=== PATIENT | male | born 1935 | race Caucasian/White ===

== ENCOUNTER → 2019-01-11 13:26 | Outpatient (REF) | payer SELFPAY ==
[2019-01-11 13:42] LABS: Calcium 8.2 mg/dL (8.4-10.2); Carbon Dioxide 19 mmol/L (22-32); Chloride 95 mmol/L (98-107); Estimated Glomerular Filt Rate 18.1 mL/min (>60); Glucose 95 mg/dL (80-110); HEMOLYSIS 16 (0-50); Sodium 129 mmol/L (137-145)
[2019-01-11 13:46] LABS: Blood Urea Nitrogen 109 mg/dL (9-20)
== END ==
LOC: LAB 13:26
PROVIDERS: Visit Provider Hospitalist
DX: R94.4 Abnormal results of kidney function studies (principal); E87.5 Hyperkalemia; I10 Essential (primary) hypertension
CPT/HCPCS: 80048

== ENCOUNTER → 2019-01-26 09:00 | Outpatient (REF) | payer MEDICARE, OTHER, SELFPAY ==
[2019-01-26 11:25] LABS: Add Manual Diff / Slide Review NO; Basophils Absolute Auto 0 /uL (0-100); Basophils Percent Auto 0.5 % (0-2); Eosinophils Absolute Auto 100 /uL (0-450); Eosinophils Percent Auto 1.2 % (2-4); Hematocrit 27.9 % (41-53); Hemoglobin 9.5 g/dL (13.5-17.5); Lymphocytes Absolute Auto 1300 /uL (1100-4500); Lymphocytes Percent Auto 15.8 % (25-40); Mean Corpuscular HGB Conc 33.9 % (30-36); Mean Corpuscular Hemoglobin 27.5 PG (26-34); Mean Corpuscular Volume 81.1 fL (80-100); Monocytes Absolute Auto 900 /uL (0-900); Monocytes Percent Auto 11.9 % (3-14); Neutrophils Absolute Auto 5600 /uL (1500-7000); Neutrophils Percent Auto 70.6 % (50-75); Platelet Count 246 X10^3/uL (150-400); Red Blood Cell Count 3.45 X10^6/uL (4.5-5.9); Red Cell Distribution Width 16.1 % (11.6-14.8)
[2019-01-26 11:46] LABS: BUN Creatinine Ratio 33.2 (6-22); Blood Urea Nitrogen 63 mg/dL (9-20); Calcium 9.1 mg/dL (8.4-10.2); Carbon Dioxide 32 mmol/L (22-32); Chloride 91 mmol/L (98-107); Estimated Glomerular Filt Rate 34.2 mL/min (>60); HEMOLYSIS < 15 (0-50); Potassium 3.5 mmol/L (3.4-5.1); Sodium 137 mmol/L (137-145)
[2019-01-26 12:05] LABS: Glucose 33 mg/dL (80-110)
== END ==
LOC: LAB 09:00
PROVIDERS: Visit Provider Nurse Practitioner Family
DX: N18.9 Chronic kidney disease, unspecified (principal); E78.5 Hyperlipidemia, unspecified
CPT/HCPCS: 36415; 80048; 85025

== ENCOUNTER 2019-01-26 13:45 | Emergency (ER) | payer MEDICARE, OTHER, SELFPAY ==
[2019-01-26] VITALS (21 sets, daily range): BP systolic 119–157; BP diastolic 47–111; PULSE 54–70; RESP 14–34; TEMP 32–36.8; O2SAT 60–100
--- NOTE | 2019-01-26 14:02 | DI.CT.S_ITS ---
PROCEDURE: CT HEAD/BRAIN WO CON INDICATIONS: altered mental status TECHNIQUE: Noncontrast 4.5 mm thick angled axial sections acquired from the foramen magnum to the vertex, with coronal and sagittal reformats. For radiation dose reduction, the following was used: automated exposure control, adjustment of mA and/or kV according to patient size. COMPARISON: None. FINDINGS: Image quality: There is motion artifact limiting evaluation. CSF spaces: Basal cisterns are patent. No extra-axial fluid collections. There is [id number] cerebral volume loss, with resultant ventricular and sulcal prominence. Brain: No definite intracranial hemorrhage, mass, or mass effect. Encephalomalacia is demonstrated within the left cerebellar hemisphere consistent with sequela of a prior infarct. Evaluation in the posterior fossa is markedly limited. There are subcortical, periventricular and deep white matter hypodensities consistent with [id number] chronic small vessel ischemic changes. A focal hypodensity in the right basal ganglia is suggestive of a prior lacunar infarct. There is intracranial internal carotid artery atherosclerosis. Skull and face: Calvarium and visualized facial bones appear intact, without suspicious lesions. Sinuses: Visualized sinuses and mastoids are clear. IMPRESSION: 1. Limited study due to motion artifact demonstrates no definite acute intracranial abnormality. 2. 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 3. Mild to moderate chronic white matter small vessel ischemic changes and cerebral volume loss. Dictated by: Binh Alvarado M.D. on 01/26/2019 at 15:16 Approved by: Binh Alvarado M.D. on 01/26/2019 at 15:19
--- NOTE | 2019-01-26 14:20 | ED.NEUROSD ---
HPI - Neuro Symptoms/Deficit <Jada Anderson DO - Last Filed: 01/27/19 07:05> General Chief Complaint: Neuro Symptoms/Deficit Stated Complaint: Mental Status Change Time Seen by Provider: 01/26/19 13:50 Source: patient and EMS Limitations: altered mental status History of Present Illness HPI Narrative: Patient is an 83-year-old male presenting with altered mental status. He is currently being treated for C diff, found to be altered found to have glucose of 31 by EMS. He was given dextrose glucose improved to 143 still overall not getting better with his mental status oxygen level also noted to be low in the 80s and standing course. She was recently at [facility] admitted for a few days had an echocardiogram. Patient has been admitted multiple times at [facility] recently and discharged on 01/24/2019. During his admission there he was noted to be hypothermic, hypokalemic also noted to have a rash on his rectal area thought to be fungal. Onset (ago): hour(s) Related Data Allergies Allergy/AdvReac Type Severity Reaction Status Date / Time No Known Drug Allergies Allergy Verified 01/26/19 15:51 Review of Systems <Jada Anderson DO - Last Filed: 01/27/19 07:05> Review of Systems ROS Unobtainable: Unobtainable due to medical condition [facility] <Jada Anderson DO - Last Filed: 01/27/19 07:05> Medical History (Updated 01/26/19 @ 18:41 by Jada Anderson DO) Acute kidney failure (Acute) Diabetes (Acute) Diastolic heart failure (Acute) C. difficile colitis (Acute) Hypertension (Acute) Exam <Jada Anderson DO - Last Filed: 01/27/19 07:05> Initial Vital Signs Initial Vital Signs: Vital Signs Pulse Rate 58 L 01/26/19 14:15 Respiratory Rate 29 H 01/26/19 14:15 Blood Pressure 155/55 H 01/26/19 14:15 Pulse Oximetry 60 L 01/26/19 14:15 Gen.: One-week confused elderly male responsive to pain and voice HEENT: Atraumatic EOMI Neck: Supple lung his neck nontender Lungs: Coarse bilaterally Cardiac: Regular rate no murmur Abdomen: Obese, soft, nontender Extremities: Moving all extremities peripheral pulses intact cold to touch Neurologic: Responsive to voice and pain can follow some commands Skin: Sacral area erythematous with sloughing of skin Dry not moist <Judah Liang DO - Last Filed: 01/27/19 02:15> Initial Vital Signs Initial Vital Signs: Vital Signs Pulse Rate 58 L 01/26/19 14:15 Respiratory Rate 29 H 01/26/19 14:15 Blood Pressure 155/55 H 01/26/19 14:15 Pulse Oximetry 60 L 01/26/19 14:15 Course <Jada Anderson DO - Last Filed: 01/27/19 07:05> Orders Ordered: ED Orders 01/26/19 22:45 Basic Metabolic Panel Stat Troponin I Stat Discontinued Medications Dextrose (D50w) 25 gm IV NOW ONE Stop: 01/26/19 14:01 Last Admin: 01/26/19 16:23 Dose: Not Given Furosemide (Lasix) 40 mg IV NOW ONE Stop: 01/26/19 14:14 Last Admin: 01/26/19 14:47 Dose: 40 mg Dextrose (D10w) 1,000 mls @ 100 mls/hr IV CONT ALEJA Last Infusion: 01/26/19 23:51 Dose: 0 mls/hr Admin: 01/26/19 14:47 Dose: 100 mls/hr Potassium Chloride 40 meq/ (Sodium Chloride) 520 mls @ 130 mls/hr IV NOW ONE Stop: 01/26/19 20:39 Last Infusion: 01/26/19 22:29 Dose: 0 mls/hr Admin: 01/26/19 17:13 Dose: 130 mls/hr Sodium Chloride (Normal Saline 0.9%) 1,000 mls @ 100 mls/hr IV BOLUS ONE Stop: 01/27/19 09:26 Last Infusion: 01/27/19 01:40 Dose: 100 mls/hr Admin: 01/26/19 23:31 Dose: 100 mls/hr Consultations Consultation #1: Dr. Osuna, hospitalist at [facility] Time: 18:33 Vital Signs - 8 hr 01/26/19 23:17 01/27/19 00:30 01/27/19 00:38 Temperature 98.4 F Pulse Rate 66 Respiratory Rate 28 H Blood Pressure 154/55 H 151/44 H Blood Pressure [Left Arm] 151/44 H Pulse Oximetry 95 01/27/19 01:00 01/27/19 01:30 Temperature 98.5 F 98.5 F Pulse Rate 70 67 Respiratory Rate 14 Blood Pressure Blood Pressure [Left Arm] 153/68 H 161/63 H Pulse Oximetry 95 97 <Judah Liang DO - Last Filed: 01/27/19 02:15> Orders Ordered: ED Orders 01/26/19 22:45 Basic Metabolic Panel Stat Troponin I Stat Discontinued Medications Dextrose (D50w) 25 gm IV NOW ONE Stop: 01/26/19 14:01 Last Admin: 01/26/19 16:23 Dose: Not Given Furosemide (Lasix) 40 mg IV NOW ONE Stop: 01/26/19 14:14 Last Admin: 01/26/19 14:47 Dose: 40 mg Dextrose (D10w) 1,000 mls @ 100 mls/hr IV CONT ALEJA Last Infusion: 01/26/19 23:51 Dose: 0 mls/hr Admin: 01/26/19 14:47 Dose: 100 mls/hr Potassium Chloride 40 meq/ (Sodium Chloride) 520 mls @ 130 mls/hr IV NOW ONE Stop: 01/26/19 20:39 Last Infusion: 01/26/19 22:29 Dose: 0 mls/hr Admin: 01/26/19 17:13 Dose: 130 mls/hr Sodium Chloride (Normal Saline 0.9%) 1,000 mls @ 100 mls/hr IV BOLUS ONE Stop: 01/27/19 09:26 Last Infusion: 01/27/19 01:40 Dose: 100 mls/hr Admin: 01/26/19 23:31 Dose: 100 mls/hr Vital Signs - 8 hr 01/26/19 23:17 01/27/19 00:30 01/27/19 00:38 Temperature 98.4 F Pulse Rate 66 Respiratory Rate 28 H Blood Pressure 154/55 H 151/44 H Blood Pressure [Left Arm] 151/44 H Pulse Oximetry 95 01/27/19 01:00 01/27/19 01:30 Temperature 98.5 F 98.5 F Pulse Rate 70 67 Respiratory Rate 14 Blood Pressure Blood Pressure [Left Arm] 153/68 H 161/63 H Pulse Oximetry 95 97 MDM - Neuro Symptoms/Deficit <DO Janice Brito Last Filed: 01/27/19 07:05> Lab Data Attestation: I reviewed the patient's lab results. Result diagrams: 01/26/19 14:56 01/26/19 22:45 Lab Results 01/26/19 01/26/19 01/26/19 Range/Units 13:35 14:45 14:56 WBC 7.9 (4.5-11.0) X10^3/uL RBC 3.45 L (4.5-5.9) X10^6/uL Hgb 9.2 L (13.5-17.5) g/dL Hct 28.1 L (41-53) % MCV 81.6 (80-100) fL MCH 26.8 (26-34) PG MCHC 32.9 (30-36) % RDW 16.3 H (11.6-14.8) % Plt Count 242 (150-400) X10^3/uL Neut % (Auto) 79.2 H (50-75) % Lymph % (Auto) 9.3 L (25-40) % [place] % (Auto) 9.9 (3-14) % Eos % (Auto) 1.2 L (2-4) % Baso % (Auto) 0.4 (0-2) % Neut # (Auto) 6300 (9812-6090) /uL Lymph # (Auto) 700 L (5433-4988) /uL [place] # (Auto) 800 (0-900) /uL Eos # (Auto) 100 (0-450) /uL Baso # (Auto) 0 (0-100) /uL PT (10.1-12.7) SECONDS INR (0.9-1.3) APTT (26.4-36.2) SECONDS ABG pH 7.33 L (7.35-7.45) ABG pCO2 69.0 H* (35-45) mmHg ABG pO2 85 (80-100) mmHg ABG HCO3 37 H (22-26) mmol/L ABG Total CO2 39 H (21-31) mmol/L ABG O2 Saturation 95 (95-100) % ABG Base Excess 11.0 H (-2-2) mmol/L FiO2 1.0 Sodium (137-145) mmol/L Potassium (3.4-5.1) mmol/L Chloride (98-107) mmol/L Carbon Dioxide (22-32) mmol/L BUN (9-20) mg/dL Creatinine (0.66-1.25) mg/dL Estimated GFR (>60) mL/min BUN/Creatinine Ratio (6-22) Glucose (80-110) mg/dL Lactate (0.7-2.1) mmol/L Calcium (8.4-10.2) mg/dL Total Bilirubin (0.2-1.3) mg/dL AST (17-59) IU/L ALT (21-72) IU/L Alkaline Phosphatase (38-126) U/L Total Creatine Kinase (55-170) U/L CK-MB (CK-2) CK-MB (CK-2) Rel Index Troponin I (0.01-0.034) ng/mL B-Natriuretic Peptide (<100) Total Protein (6.3-8.2) g/dL Albumin (3.5-5.0) g/dL Globulin (1.7-4.1) g/dL Albumin/Globulin Ratio (1.0-2.8) Urine Opiates Screen Negative (Negative) Ur Oxycodone Screen Positive H (Negative) Urine Methadone Screen Negative (Negative) Acetaminophen (10-30) ug/mL Ur Barbiturates Screen Negative (Negative) U Tricyclic Antidepress Negative (Negative) Ur Phencyclidine Scrn Negative (Negative) Ur Amphetamines Screen Negative (Negative) U Methamphetamines Scrn Negative (Negative) Ur MDMA Scrn (Ecstasy) Negative (Negative) U Benzodiazepines Scrn Negative (Negative) Urine Cocaine Screen Negative (Negative) U Marijuana (THC) Screen Negative (Negative) Influenza A & B (PCR) (Negative) 01/26/19 01/26/19 01/26/19 Range/Units 14:56 14:56 14:56 WBC (4.5-11.0) X10^3/uL RBC (4.5-5.9) X10^6/uL Hgb (13.5-17.5) g/dL Hct (41-53) % MCV (80-100) fL MCH (26-34) PG MCHC (30-36) % RDW (11.6-14.8) % Plt Count (150-400) X10^3/uL Neut % (Auto) (50-75) % Lymph % (Auto) (25-40) % [place] % (Auto) (3-14) % Eos % (Auto) (2-4) % Baso % (Auto) (0-2) % Neut # (Auto) (5173-0763) /uL Lymph # (Auto) (8974-5079) /uL [place] # (Auto) (0-900) /uL Eos # (Auto) (0-450) /uL Baso # (Auto) (0-100) /uL PT 13.5 H (10.1-12.7) SECONDS INR 1.2 (0.9-1.3) APTT 30 (26.4-36.2) SECONDS ABG pH (7.35-7.45) ABG pCO2 (35-45) mmHg ABG pO2 (80-100) mmHg ABG HCO3 (22-26) mmol/L ABG Total CO2 (21-31) mmol/L ABG O2 Saturation (95-100) % ABG Base Excess (-2-2) mmol/L FiO2 Sodium 137 (137-145) mmol/L Potassium 2.8 L (3.4-5.1) mmol/L Chloride 90 L (98-107) mmol/L Carbon Dioxide 37 H (22-32) mmol/L BUN 62 H (9-20) mg/dL Creatinine 1.90 H (0.66-1.25) mg/dL Estimated GFR 34.2 L (>60) mL/min BUN/Creatinine Ratio 32.6 H (6-22) Glucose 97 (80-110) mg/dL Lactate 0.5 L (0.7-2.1) mmol/L Calcium 8.9 (8.4-10.2) mg/dL Total Bilirubin 0.2 (0.2-1.3) mg/dL AST 37 (17-59) IU/L ALT 48 (21-72) IU/L Alkaline Phosphatase 126 (38-126) U/L Total Creatine Kinase 21 L (55-170) U/L CK-MB (CK-2) TNP CK-MB (CK-2) Rel Index TNP Troponin I < 0.012 (0.01-0.034) ng/mL B-Natriuretic Peptide (<100) Total Protein 6.7 (6.3-8.2) g/dL Albumin 3.6 (3.5-5.0) g/dL Globulin 3.1 (1.7-4.1) g/dL Albumin/Globulin Ratio 1.2 (1.0-2.8) Urine Opiates Screen (Negative) Ur Oxycodone Screen (Negative) Urine Methadone Screen (Negative) Acetaminophen < 10 L (10-30) ug/mL Ur Barbiturates Screen (Negative) U Tricyclic Antidepress (Negative) Ur Phencyclidine Scrn (Negative) Ur Amphetamines Screen (Negative) U Methamphetamines Scrn (Negative) Ur MDMA Scrn (Ecstasy) (Negative) U Benzodiazepines Scrn (Negative) Urine Cocaine Screen (Negative) U Marijuana (THC) Screen (Negative) Influenza A & B (PCR) (Negative) 01/26/19 01/26/19 01/26/19 Range/Units 14:56 16:10 16:48 WBC (4.5-11.0) X10^3/uL RBC (4.5-5.9) X10^6/uL Hgb (13.5-17.5) g/dL Hct (41-53) % MCV (80-100) fL MCH (26-34) PG MCHC (30-36) % RDW (11.6-14.8) % Plt Count (150-400) X10^3/uL Neut % (Auto) (50-75) % Lymph % (Auto) (25-40) % [place] % (Auto) (3-14) % Eos % (Auto) (2-4) % Baso % (Auto) (0-2) % Neut # (Auto) (0115-1948) /uL Lymph # (Auto) (1600-4747) /uL [place] # (Auto) (0-900) /uL Eos # (Auto) (0-450) /uL Baso # (Auto) (0-100) /uL PT (10.1-12.7) SECONDS INR (0.9-1.3) APTT (26.4-36.2) SECONDS ABG pH 7.34 L (7.35-7.45) ABG pCO2 66.7 H* (35-45) mmHg ABG pO2 80 (80-100) mmHg ABG HCO3 36 H (22-26) mmol/L ABG Total CO2 38 H (21-31) mmol/L ABG O2 Saturation 94 L (95-100) % ABG Base Excess 10.0 H (-2-2) mmol/L FiO2 0.70 Sodium (137-145) mmol/L Potassium (3.4-5.1) mmol/L Chloride (98-107) mmol/L Carbon Dioxide (22-32) mmol/L BUN (9-20) mg/dL Creatinine (0.66-1.25) mg/dL Estimated GFR (>60) mL/min BUN/Creatinine Ratio (6-22) Glucose (80-110) mg/dL Lactate (0.7-2.1) mmol/L Calcium (8.4-10.2) mg/dL Total Bilirubin (0.2-1.3) mg/dL AST (17-59) IU/L ALT (21-72) IU/L Alkaline Phosphatase (38-126) U/L Total Creatine Kinase (55-170) U/L CK-MB (CK-2) CK-MB (CK-2) Rel Index Troponin I (0.01-0.034) ng/mL B-Natriuretic Peptide 406 H (<100) Total Protein (6.3-8.2) g/dL Albumin (3.5-5.0) g/dL Globulin (1.7-4.1) g/dL Albumin/Globulin Ratio (1.0-2.8) Urine Opiates Screen (Negative) Ur Oxycodone Screen (Negative) Urine Methadone Screen (Negative) Acetaminophen (10-30) ug/mL Ur Barbiturates Screen (Negative) U Tricyclic Antidepress (Negative) Ur Phencyclidine Scrn (Negative) Ur Amphetamines Screen (Negative) U Methamphetamines Scrn (Negative) Ur MDMA Scrn (Ecstasy) (Negative) U Benzodiazepines Scrn (Negative) Urine Cocaine Screen (Negative) U Marijuana (THC) Screen (Negative) Influenza A & B (PCR) Negative (Negative) 01/26/19 01/26/19 01/26/19 Range/Units 21:50 22:45 22:45 WBC (4.5-11.0) X10^3/uL RBC (4.5-5.9) X10^6/uL Hgb (13.5-17.5) g/dL Hct (41-53) % MCV (80-100) fL MCH (26-34) PG MCHC (30-36) % RDW (11.6-14.8) % Plt Count (150-400) X10^3/uL Neut % (Auto) (50-75) % Lymph % (Auto) (25-40) % [place] % (Auto) (3-14) % Eos % (Auto) (2-4) % Baso % (Auto) (0-2) % Neut # (Auto) (1565-4528) /uL Lymph # (Auto) (2789-9522) /uL [place] # (Auto) (0-900) /uL Eos # (Auto) (0-450) /uL Baso # (Auto) (0-100) /uL PT (10.1-12.7) SECONDS INR (0.9-1.3) APTT (26.4-36.2) SECONDS ABG pH 7.40 (7.35-7.45) ABG pCO2 53.5 H (35-45) mmHg ABG pO2 77 L (80-100) mmHg ABG HCO3 33 H (22-26) mmol/L ABG Total CO2 35 H (21-31) mmol/L ABG O2 Saturation 95 (95-100) % ABG Base Excess 9.0 H (-2-2) mmol/L FiO2 60 Sodium 136 L (137-145) mmol/L Potassium 3.5 (3.4-5.1) mmol/L Chloride 91 L (98-107) mmol/L Carbon Dioxide 33 H (22-32) mmol/L BUN 64 H (9-20) mg/dL Creatinine 1.70 H (0.66-1.25) mg/dL Estimated GFR 38.9 L (>60) mL/min BUN/Creatinine Ratio 37.6 H (6-22) Glucose 151 H (80-110) mg/dL Lactate (0.7-2.1) mmol/L Calcium 8.7 (8.4-10.2) mg/dL Total Bilirubin (0.2-1.3) mg/dL AST (17-59) IU/L ALT (21-72) IU/L Alkaline Phosphatase (38-126) U/L Total Creatine Kinase (55-170) U/L CK-MB (CK-2) CK-MB (CK-2) Rel Index Troponin I 0.013 (0.01-0.034) ng/mL B-Natriuretic Peptide (<100) Total Protein (6.3-8.2) g/dL Albumin (3.5-5.0) g/dL Globulin (1.7-4.1) g/dL Albumin/Globulin Ratio (1.0-2.8) Urine Opiates Screen (Negative) Ur Oxycodone Screen (Negative) Urine Methadone Screen (Negative) Acetaminophen (10-30) ug/mL Ur Barbiturates Screen (Negative) U Tricyclic Antidepress (Negative) Ur Phencyclidine Scrn (Negative) Ur Amphetamines Screen (Negative) U Methamphetamines Scrn (Negative) Ur MDMA Scrn (Ecstasy) (Negative) U Benzodiazepines Scrn (Negative) Urine Cocaine Screen (Negative) U Marijuana (THC) Screen (Negative) Influenza A & B (PCR) (Negative) Point of Care Testing Glucose POC 159 Imaging Data Chest x-ray: Radiologist's impression: PROCEDURE: XR CHEST 1V INDICATIONS: sob TECHNIQUE: One view of the chest was acquired. COMPARISON: [facility], , XR CHEST 1 VIEW, 01/23/2019, 21:34. FINDINGS: Surgical changes and devices: None. Lungs and pleura: Elevation of the right diaphragm is present with blunting of the right costophrenic angle and slight increased attenuation overlying the diaphragm. Vascular hilar prominence is present. There is no pneumothorax. Mediastinum: Mediastinal contours appear normal. The heart appears enlarged. There is aortic atherosclerosis. Bones and chest wall: No suspicious bony lesions. Overlying soft tissues appear unremarkable. IMPRESSION: 1. Cardiomegaly with moderate perihilar vascular congestion. Please clinically clinically to exclude pulmonary edema. 2. Small moderate size right-sided pleural effusion with associated right basilar consolidation, likely representing atelectasis versus pneumonia. Dictated by: Loi Dang M.D. on 01/26/2019 at 15:13 CT scan - head: Radiologist's impression: PROCEDURE: CT HEAD/BRAIN WO CON INDICATIONS: altered mental status TECHNIQUE: Noncontrast 4.5 mm thick angled axial sections acquired from the foramen magnum to the vertex, with coronal and sagittal reformats. For radiation dose reduction, the following was used: automated exposure control, adjustment of mA and/or kV according to patient size. COMPARISON: None. FINDINGS: Image quality: There is motion artifact limiting evaluation. CSF spaces: Basal cisterns are patent. No extra-axial fluid collections. There is [id number] cerebral volume loss, with resultant ventricular and sulcal prominence. Brain: No definite intracranial hemorrhage, mass, or mass effect. Encephalomalacia is demonstrated within the left cerebellar hemisphere consistent with sequela of a prior infarct. Evaluation in the posterior fossa is markedly limited. There are subcortical, periventricular and deep white matter hypodensities consistent with [id number] chronic small vessel ischemic changes. A focal hypodensity in the right basal ganglia is suggestive of a prior lacunar infarct. There is intracranial internal carotid artery atherosclerosis. Skull and face: Calvarium and visualized facial bones appear intact, without suspicious lesions. Sinuses: Visualized sinuses and mastoids are clear. IMPRESSION: 1. Limited study due to motion artifact demonstrates no definite acute intracranial abnormality. 2. 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 3. Mild to moderate chronic white matter small vessel ischemic changes and cerebral volume loss. Dictated by: Binh Alvarado M.D. on 01/26/2019 at 15:16 ECG Data Attestation: I personally reviewed and interpreted this ECG as follows: Prior ECG tracings: available for review Interpretation: Sinus rhythm rate [address] changes QTC is 505 as needed interval 262 MDM Narrative Medical decision making narrative: The patient placed on BiPAP after ABG showed hypercapnia. Tolerating it well overall improving, still remains hypothermic our records state that he was hypothermic on admission previously. He is placed in a [facility]. Potassium is being replaced. the patient is placed on a D10 dextrose drip glucose remains stable The patient's blood pressure has remained stable. No sign of acute sepsis, besides hypothermia. The patient will need ICU step-down like care. [facility]. Records will be going with patient. <Judah Liang, - Last Filed: 01/27/19 02:15> Lab Data Lab Results 01/26/19 01/26/19 01/26/19 Range/Units 13:35 14:45 14:56 WBC 7.9 (4.5-11.0) X10^3/uL RBC 3.45 L (4.5-5.9) X10^6/uL Hgb 9.2 L (13.5-17.5) g/dL Hct 28.1 L (41-53) % MCV 81.6 (80-100) fL MCH 26.8 (26-34) PG MCHC 32.9 (30-36) % RDW 16.3 H (11.6-14.8) % Plt Count 242 (150-400) X10^3/uL Neut % (Auto) 79.2 H (50-75) % Lymph % (Auto) 9.3 L (25-40) % [place] % (Auto) 9.9 (3-14) % Eos % (Auto) 1.2 L (2-4) % Baso % (Auto) 0.4 (0-2) % Neut # (Auto) 6300 (4208-2383) /uL Lymph # (Auto) 700 L (3115-1553) /uL [place] # (Auto) 800 (0-900) /uL Eos # (Auto) 100 (0-450) /uL Baso # (Auto) 0 (0-100) /uL PT (10.1-12.7) SECONDS INR (0.9-1.3) APTT (26.4-36.2) SECONDS ABG pH 7.33 L (7.35-7.45) ABG pCO2 69.0 H* (35-45) mmHg ABG pO2 85 (80-100) mmHg ABG HCO3 37 H (22-26) mmol/L ABG Total CO2 39 H (21-31) mmol/L ABG O2 Saturation 95 (95-100) % ABG Base Excess 11.0 H (-2-2) mmol/L FiO2 1.0 Sodium (137-145) mmol/L Potassium (3.4-5.1) mmol/L Chloride (98-107) mmol/L Carbon Dioxide (22-32) mmol/L BUN (9-20) mg/dL Creatinine (0.66-1.25) mg/dL Estimated GFR (>60) mL/min BUN/Creatinine Ratio (6-22) Glucose (80-110) mg/dL Lactate (0.7-2.1) mmol/L Calcium (8.4-10.2) mg/dL Total Bilirubin (0.2-1.3) mg/dL AST (17-59) IU/L ALT (21-72) IU/L Alkaline Phosphatase (38-126) U/L Total Creatine Kinase (55-170) U/L CK-MB (CK-2) CK-MB (CK-2) Rel Index Troponin I (0.01-0.034) ng/mL B-Natriuretic Peptide (<100) Total Protein (6.3-8.2) g/dL Albumin (3.5-5.0) g/dL Globulin (1.7-4.1) g/dL Albumin/Globulin Ratio (1.0-2.8) Urine Opiates Screen Negative (Negative) Ur Oxycodone Screen Positive H (Negative) Urine Methadone Screen Negative (Negative) Acetaminophen (10-30) ug/mL Ur Barbiturates Screen Negative (Negative) U Tricyclic Antidepress Negative (Negative) Ur Phencyclidine Scrn Negative (Negative) Ur Amphetamines Screen Negative (Negative) U Methamphetamines Scrn Negative (Negative) Ur MDMA Scrn (Ecstasy) Negative (Negative) U Benzodiazepines Scrn Negative (Negative) Urine Cocaine Screen Negative (Negative) U Marijuana (THC) Screen Negative (Negative) Influenza A & B (PCR) (Negative) 01/26/19 01/26/19 01/26/19 Range/Units 14:56 14:56 14:56 WBC (4.5-11.0) X10^3/uL RBC (4.5-5.9) X10^6/uL Hgb (13.5-17.5) g/dL Hct (41-53) % MCV (80-100) fL MCH (26-34) PG MCHC (30-36) % RDW (11.6-14.8) % Plt Count (150-400) X10^3/uL Neut % (Auto) (50-75) % Lymph % (Auto) (25-40) % [place] % (Auto) (3-14) % Eos % (Auto) (2-4) % Baso % (Auto) (0-2) % Neut # (Auto) (8655-4672) /uL Lymph # (Auto) (3519-1539) /uL [place] # (Auto) (0-900) /uL Eos # (Auto) (0-450) /uL Baso # (Auto) (0-100) /uL PT 13.5 H (10.1-12.7) SECONDS INR 1.2 (0.9-1.3) APTT 30 (26.4-36.2) SECONDS ABG pH (7.35-7.45) ABG pCO2 (35-45) mmHg ABG pO2 (80-100) mmHg ABG HCO3 (22-26) mmol/L ABG Total CO2 (21-31) mmol/L ABG O2 Saturation (95-100) % ABG Base Excess (-2-2) mmol/L FiO2 Sodium 137 (137-145) mmol/L Potassium 2.8 L (3.4-5.1) mmol/L Chloride 90 L (98-107) mmol/L Carbon Dioxide 37 H (22-32) mmol/L BUN 62 H (9-20) mg/dL Creatinine 1.90 H (0.66-1.25) mg/dL Estimated GFR 34.2 L (>60) mL/min BUN/Creatinine Ratio 32.6 H (6-22) Glucose 97 (80-110) mg/dL Lactate 0.5 L (0.7-2.1) mmol/L Calcium 8.9 (8.4-10.2) mg/dL Total Bilirubin 0.2 (0.2-1.3) mg/dL AST 37 (17-59) IU/L ALT 48 (21-72) IU/L Alkaline Phosphatase 126 (38-126) U/L Total Creatine Kinase 21 L (55-170) U/L CK-MB (CK-2) TNP CK-MB (CK-2) Rel Index TNP Troponin I < 0.012 (0.01-0.034) ng/mL B-Natriuretic Peptide (<100) Total Protein 6.7 (6.3-8.2) g/dL Albumin 3.6 (3.5-5.0) g/dL Globulin 3.1 (1.7-4.1) g/dL Albumin/Globulin Ratio 1.2 (1.0-2.8) Urine Opiates Screen (Negative) Ur Oxycodone Screen (Negative) Urine Methadone Screen (Negative) Acetaminophen < 10 L (10-30) ug/mL Ur Barbiturates Screen (Negative) U Tricyclic Antidepress (Negative) Ur Phencyclidine Scrn (Negative) Ur Amphetamines Screen (Negative) U Methamphetamines Scrn (Negative) Ur MDMA Scrn (Ecstasy) (Negative) U Benzodiazepines Scrn (Negative) Urine Cocaine Screen (Negative) U Marijuana (THC) Screen (Negative) Influenza A & B (PCR) (Negative) 01/26/19 01/26/19 01/26/19 Range/Units 14:56 16:10 16:48 WBC (4.5-11.0) X10^3/uL RBC (4.5-5.9) X10^6/uL Hgb (13.5-17.5) g/dL Hct (41-53) % MCV (80-100) fL MCH (26-34) PG MCHC (30-36) % RDW (11.6-14.8) % Plt Count (150-400) X10^3/uL Neut % (Auto) (50-75) % Lymph % (Auto) (25-40) % [place] % (Auto) (3-14) % Eos % (Auto) (2-4) % Baso % (Auto) (0-2) % Neut # (Auto) (3373-6113) /uL Lymph # (Auto) (9444-2915) /uL [place] # (Auto) (0-900) /uL Eos # (Auto) (0-450) /uL Baso # (Auto) (0-100) /uL PT (10.1-12.7) SECONDS INR (0.9-1.3) APTT (26.4-36.2) SECONDS ABG pH 7.34 L (7.35-7.45) ABG pCO2 66.7 H* (35-45) mmHg ABG pO2 80 (80-100) mmHg ABG HCO3 36 H (22-26) mmol/L ABG Total CO2 38 H (21-31) mmol/L ABG O2 Saturation 94 L (95-100) % ABG Base Excess 10.0 H (-2-2) mmol/L FiO2 0.70 Sodium (137-145) mmol/L Potassium (3.4-5.1) mmol/L Chloride (98-107) mmol/L Carbon Dioxide (22-32) mmol/L BUN (9-20) mg/dL Creatinine (0.66-1.25) mg/dL Estimated GFR (>60) mL/min BUN/Creatinine Ratio (6-22) Glucose (80-110) mg/dL Lactate (0.7-2.1) mmol/L Calcium (8.4-10.2) mg/dL Total Bilirubin (0.2-1.3) mg/dL AST (17-59) IU/L ALT (21-72) IU/L Alkaline Phosphatase (38-126) U/L Total Creatine Kinase (55-170) U/L CK-MB (CK-2) CK-MB (CK-2) Rel Index Troponin I (0.01-0.034) ng/mL B-Natriuretic Peptide 406 H (<100) Total Protein (6.3-8.2) g/dL Albumin (3.5-5.0) g/dL Globulin (1.7-4.1) g/dL Albumin/Globulin Ratio (1.0-2.8) Urine Opiates Screen (Negative) Ur Oxycodone Screen (Negative) Urine Methadone Screen (Negative) Acetaminophen (10-30) ug/mL Ur Barbiturates Screen (Negative) U Tricyclic Antidepress (Negative) Ur Phencyclidine Scrn (Negative) Ur Amphetamines Screen (Negative) U Methamphetamines Scrn (Negative) Ur MDMA Scrn (Ecstasy) (Negative) U Benzodiazepines Scrn (Negative) Urine Cocaine Screen (Negative) U Marijuana (THC) Screen (Negative) Influenza A & B (PCR) Negative (Negative) 01/26/19 01/26/19 01/26/19 Range/Units 21:50 22:45 22:45 WBC (4.5-11.0) X10^3/uL RBC (4.5-5.9) X10^6/uL Hgb (13.5-17.5) g/dL Hct (41-53) % MCV (80-100) fL MCH (26-34) PG MCHC (30-36) % RDW (11.6-14.8) % Plt Count (150-400) X10^3/uL Neut % (Auto) (50-75) % Lymph % (Auto) (25-40) % [place] % (Auto) (3-14) % Eos % (Auto) (2-4) % Baso % (Auto) (0-2) % Neut # (Auto) (3446-7955) /uL Lymph # (Auto) (4751-0059) /uL [place] # (Auto) (0-900) /uL Eos # (Auto) (0-450) /uL Baso # (Auto) (0-100) /uL PT (10.1-12.7) SECONDS INR (0.9-1.3) APTT (26.4-36.2) SECONDS ABG pH 7.40 (7.35-7.45) ABG pCO2 53.5 H (35-45) mmHg ABG pO2 77 L (80-100) mmHg ABG HCO3 33 H (22-26) mmol/L ABG Total CO2 35 H (21-31) mmol/L ABG O2 Saturation 95 (95-100) % ABG Base Excess 9.0 H (-2-2) mmol/L FiO2 60 Sodium 136 L (137-145) mmol/L Potassium 3.5 (3.4-5.1) mmol/L Chloride 91 L (98-107) mmol/L Carbon Dioxide 33 H (22-32) mmol/L BUN 64 H (9-20) mg/dL Creatinine 1.70 H (0.66-1.25) mg/dL Estimated GFR 38.9 L (>60) mL/min BUN/Creatinine Ratio 37.6 H (6-22) Glucose 151 H (80-110) mg/dL Lactate (0.7-2.1) mmol/L Calcium 8.7 (8.4-10.2) mg/dL Total Bilirubin (0.2-1.3) mg/dL AST (17-59) IU/L ALT (21-72) IU/L Alkaline Phosphatase (38-126) U/L Total Creatine Kinase (55-170) U/L CK-MB (CK-2) CK-MB (CK-2) Rel Index Troponin I 0.013 (0.01-0.034) ng/mL B-Natriuretic Peptide (<100) Total Protein (6.3-8.2) g/dL Albumin (3.5-5.0) g/dL Globulin (1.7-4.1) g/dL Albumin/Globulin Ratio (1.0-2.8) Urine Opiates Screen (Negative) Ur Oxycodone Screen (Negative) Urine Methadone Screen (Negative) Acetaminophen (10-30) ug/mL Ur Barbiturates Screen (Negative) U Tricyclic Antidepress (Negative) Ur Phencyclidine Scrn (Negative) Ur Amphetamines Screen (Negative) U Methamphetamines Scrn (Negative) Ur MDMA Scrn (Ecstasy) (Negative) U Benzodiazepines Scrn (Negative) Urine Cocaine Screen (Negative) U Marijuana (THC) Screen (Negative) Influenza A & B (PCR) (Negative) Point of Care Testing Glucose POC 159 MDM Narrative Medical decision making narrative: Patient initially had acceptance at [facility]. We were informed by [facility] that we could assigned transport and that they would have a bed availability. When transport arrived we received a call back from [facility] stating that we had to place the transport on hold because they did not yet have a bed. The transport team left. During that time the patient was maintaining his glucose levels greater than 150. His D10 was stopped and he was switched to normal saline. A repeat BMP shows his potassium has improved. Patient also improving on his ABG. PCO2 now down to 53. He is tolerating the BiPAP. At 1 point he did take his BiPAP off and he had desaturations to the 80s. We then received a call back from [facility] with a bed assignment. The patient was transported. Critical Care Time <Jada Anderson DO - Last Filed: 01/27/19 07:05> Critical Care Time: Yes Total Critical Care Time: 30 Attestation: The patient satisfied the definition of criticality in that they had a high probability of imminent deterioration of their conditon. Critical care time includes time spent at the bedside, plus where appropriate: gathering information from family, EMS, old records, caregivers; interpretation of test results; and time spent discussing patient with other physicians Discharge Plan Departure Patient Disposition: [facility] Clinical Impression: Acute hypokalemia CHF (congestive heart failure) Qualifiers: Heart failure type: combined systolic and diastolic Heart failure chronicity: acute on chronic Qualified Code(s): I50.43 - Acute on chronic combined systolic (congestive) and diastolic (congestive) heart failure Respiratory failure Qualifiers: Chronicity: acute Respiratory failure complication: hypoxia and hypercapnia Qualified Code(s): J96.01 - Acute respiratory failure with hypoxia Hypothermia Qualifiers: Encounter type: initial encounter Qualified Code(s): T68.XXXA - Hypothermia, initial encounter Discharge Date/Time: 01/27/19 01:45 Interventions: ED Discharge Assessment Last Done: 01/27/19 01:45
[2019-01-26] MEDS: FUROSEMIDE 40 MG/4 ML VIAL IV (14:47)
[2019-01-26] MEDS: DEXTROSE 10 % IN WATER 1,000 ML 100 ML IV (14:47)
[2019-01-26 15:15] LABS: Add Manual Diff / Slide Review NO; Basophils Absolute Auto 0 /uL (0-100); Basophils Percent Auto 0.4 % (0-2); Eosinophils Absolute Auto 100 /uL (0-450); Eosinophils Percent Auto 1.2 % (2-4); Hematocrit 28.1 % (41-53); Hemoglobin 9.2 g/dL (13.5-17.5); Lymphocytes Absolute Auto 700 /uL (1100-4500); Lymphocytes Percent Auto 9.3 % (25-40); Mean Corpuscular HGB Conc 32.9 % (30-36); Mean Corpuscular Hemoglobin 26.8 PG (26-34); Mean Corpuscular Volume 81.6 fL (80-100); Monocytes Absolute Auto 800 /uL (0-900); Monocytes Percent Auto 9.9 % (3-14); Neutrophils Absolute Auto 6300 /uL (1500-7000); Neutrophils Percent Auto 79.2 % (50-75); Platelet Count 242 X10^3/uL (150-400); Red Blood Cell Count 3.45 X10^6/uL (4.5-5.9); Red Cell Distribution Width 16.3 % (11.6-14.8); White Blood Cell Count 7.9 X10^3/uL (4.5-11.0)
[2019-01-26 15:21] LABS: INR 1.2 (0.9-1.3); Prothrombin Time 13.5 SECONDS (10.1-12.7)
[2019-01-26 15:23] LABS: PTT Partial Thromboplastin Tim 30 SECONDS (26.4-36.2)
[2019-01-26 15:27] LABS: Lactate (Lactic Acid) 0.5 mmol/L (0.7-2.1)
[2019-01-26 15:28] LABS: pH ABG 7.33 (7.35-7.45)
[2019-01-26 15:29] LABS: HCO3 ABG 37 mmol/L (22-26); Oxygen Saturation ABG 95 % (95-100); PO2 ABG 85 mmHg (80-100); TCO2 ABG 39 mmol/L (21-31)
[2019-01-26 15:29] LABS: Acetaminophen < 10 ug/mL (10-30); Alanine Aminotransferase 48 IU/L (21-72); Albumin 3.6 g/dL (3.5-5.0); Albumin Globulin Ratio 1.2 (1.0-2.8); Alkaline Phosphatase 126 U/L (38-126); Aspartate Aminotransferase 37 IU/L (17-59); BUN Creatinine Ratio 32.6 (6-22); Bilirubin Total 0.2 mg/dL (0.2-1.3); Blood Urea Nitrogen 62 mg/dL (9-20); Calcium 8.9 mg/dL (8.4-10.2); Carbon Dioxide 37 mmol/L (22-32); Chloride 90 mmol/L (98-107); Creatine Kinase 21 U/L (55-170); Estimated Glomerular Filt Rate 34.2 mL/min (>60); Globulin 3.1 g/dL (1.7-4.1); Glucose 97 mg/dL (80-110); HEMOLYSIS < 15 (0-50); Potassium 2.8 mmol/L (3.4-5.1); Sodium 137 mmol/L (137-145); Total Protein 6.7 g/dL (6.3-8.2)
[2019-01-26 15:39] LABS: Troponin I < 0.012 ng/mL (0.01-0.034)
--- NOTE | 2019-01-26 15:45 | DI.RAD.S_ITS ---
PROCEDURE: XR CHEST 1V INDICATIONS: sob TECHNIQUE: One view of the chest was acquired. COMPARISON: [facility], CR, XR CHEST 1 VIEW, 01/23/2019, 21:34. FINDINGS: Surgical changes and devices: None. Lungs and pleura: Elevation of the right diaphragm is present with blunting of the right costophrenic angle and slight increased attenuation overlying the diaphragm. Vascular hilar prominence is present. There is no pneumothorax. Mediastinum: Mediastinal contours appear normal. The heart appears enlarged. There is aortic atherosclerosis. Bones and chest wall: No suspicious bony lesions. Overlying soft tissues appear unremarkable. IMPRESSION: 1. Cardiomegaly with moderate perihilar vascular congestion. Please clinically clinically to exclude pulmonary edema. 2. Small moderate size right-sided pleural effusion with associated right basilar consolidation, likely representing atelectasis versus pneumonia. Dictated by: Loi Dang M.D. on 01/26/2019 at 15:13 Approved by: Loi Dang M.D. on 01/26/2019 at 15:15
[2019-01-26 16:00] LABS: Urine Amphetamines Negative (Negative); Urine Barbiturates Negative (Negative); Urine Benzodiazepines Negative (Negative); Urine Cocaine Negative (Negative); Urine MDMA Negative (Negative); Urine Methadone Negative (Negative); Urine Methamphetamines Negative (Negative); Urine Morphine/Opi cutoff 2000 Negative (Negative); Urine Oxycodone Positive (Negative); Urine Phencyclidine Negative (Negative); Urine Tetrahydrocannabinol Negative (Negative); Urine Tricyclic Antidepressant Negative (Negative)
--- NOTE | 2019-01-26 16:28 | PC.NURSE ---
Upon arrival pt, was incontinent of bowel movement. Missed brief. Required 3 people to clean patient. With cleaning pt, pt's gluteal area, excoriated with skin peeling off. Provider aware of periarea.
[2019-01-26 16:29] LABS: B Type Natriuretic Peptide 406 (<100)
[2019-01-26 16:34] LABS: Influenza A and B by PCR Rapid Negative (Negative)
--- NOTE | 2019-01-26 16:48 | PC.NURSE ---
Pt alert and oriented upon arrival to ER. Able to answer all questions correctly. Pt able to let needs known. Unable to tolerate Laying flat. Requires sitting up about 90 degrees to assist with breathing.
[2019-01-26 17:05] LABS: HCO3 ABG 36 mmol/L (22-26); Oxygen Saturation ABG 94 % (95-100); PO2 ABG 80 mmHg (80-100); TCO2 ABG 38 mmol/L (21-31); pH ABG 7.34 (7.35-7.45)
[2019-01-26 17:06] LABS: PCO2 ABG 66.7 mmHg (35-45)
--- NOTE | 2019-01-26 17:07 | RT ---
BIPAP SETTINGS ADJUSTED TO 16/8 AFTER ABG RESULTS OF 1648. MD DE LEÓN AWARE AND IN AGREEANCE.
[2019-01-26] MEDS: POTASSIUM CHLORIDE 40 MEQ in SODIUM CHLORIDE 0.9% 500 ML 130 ML IV (17:13)
[2019-01-26 22:12] LABS: Fractionated Inspired Oxygen 60; HCO3 ABG 33 mmol/L (22-26); Oxygen Saturation ABG 95 % (95-100); PCO2 ABG 53.5 mmHg (35-45); PO2 ABG 77 mmHg (80-100); TCO2 ABG 35 mmol/L (21-31)
--- NOTE | 2019-01-26 22:53 | PC.NURSE ---
Late entry: Initiated heated fluids and bear hugger immediately after patient returned from his head ct. Pt denied feeling cold. EXplained the purpose of the bear hugger and heated fluids to pt.
--- NOTE | 2019-01-26 23:02 | PC.NURSE ---
Pt's core body temp is at 98.2 Removed bear hugger and heated fluids at this time.
[2019-01-26 23:05] LABS: BUN Creatinine Ratio 37.6 (6-22); Blood Urea Nitrogen 64 mg/dL (9-20); Calcium 8.7 mg/dL (8.4-10.2); Carbon Dioxide 33 mmol/L (22-32); Chloride 91 mmol/L (98-107); Estimated Glomerular Filt Rate 38.9 mL/min (>60); Glucose 151 mg/dL (80-110); HEMOLYSIS < 15 (0-50); Potassium 3.5 mmol/L (3.4-5.1); Sodium 136 mmol/L (137-145)
--- NOTE | 2019-01-26 23:09 | PC.NURSE ---
Pt had been found with blood sugar at [address] [facility]. Was give an amp of D50. Medics stated glucose increased to low 100s. rechecked upon arrival at 72
--- NOTE | 2019-01-26 23:13 | PC.NURSE ---
Pt is alert/ oriented. No neurologic changes note.
[2019-01-26 23:17] LABS: Troponin I 0.013 ng/mL (0.01-0.034)
[2019-01-26] MEDS: SODIUM CHLORIDE 0.9% 1,000 ML 100 ML IV (23:31)
[2019-01-27 00:30] VITALS: BP 151/44; PULSE 66; RESP 28; TEMP 36.9; O2SAT 95
[2019-01-27 00:38] VITALS: BP 151/44; PULSE 68; RESP 14; RESP 34; O2SAT 98
[2019-01-27 01:00] VITALS: BP 153/68; PULSE 70; TEMP 36.9; O2SAT 95
[2019-01-27 01:30] VITALS: BP 161/63; PULSE 67; RESP 14; TEMP 36.9; O2SAT 97
== END 2019-01-27 01:45 | disposition short-term general hospital (02) ==
PROVIDERS: Emergency Medicine; Emergency Provider Emergency Medicine
DX: I50.43 Acute on chronic combined systolic (congestive) and diastolic (congestive) heart failure (principal); J96.01 Acute respiratory failure with hypoxia; E87.6 Hypokalemia
CPT/HCPCS: 36415; 36591; 36600; 51701; 70450; 71045; 80048; 80053; 80305; 80329; 82550; 82805; 82962; 83605; 83880; 84484; 85025; 85610; 85730; 87040; 87086; 87400; 93005; 94660; 96361; 96365; 96366; 96375; 99285; 99291; 99292; G0480; J1940; J3480